=== PATIENT | female | born 1985 | race Caucasian/White ===

== ENCOUNTER 2025-05-21 10:37 | Emergency (ER) | payer OTHER, SELFPAY ==
[2025-05-21 10:47] VITALS: BP 124/86; PULSE 84; RESP 16; TEMP 37; O2SAT 97; BMI 29.3
[2025-05-21 11:14] LABS: Hematocrit 40.3 % (37.0-47.0); Hemoglobin 13.7 g/dl (12.0-16.0); Imm Gran Abs Auto 0.03 X10*3/uL (0.00-0.03); Imm Gran Pct Auto 0.3 % (0.0-0.4); Lymphocytes Absolute Auto 2.5 X10*3/uL (1.2-4.9); MANUAL DIFF FLAG NO; Mean Corpuscular HGB Conc 34.0 g/dl (31.0-35.0); Mean Corpuscular Hemoglobin 30.0 pg (27.0-33.0); Mean Corpuscular Volume 88.4 fL (80.0-98.0); NRBC Abs Auto 0.000 X10*3/uL (0.0-0.012); NRBC Pct Auto 0.0 /100WBC (0.0-0.2); Platelet Count 230 X10*3/uL (160-400); Red Blood Count 4.56 X10*6/uL (4.20-5.50); White Blood Count 9.3 X10*3/uL (4.8-10.8)
--- NOTE | 2025-05-21 11:21 | ED.GENADULT ---
HPI - General Adult General Chief complaint: Allergic Reaction Stated complaint: Allergic Reaction Time Seen by Provider: 05/21/25 12:05 Related Data Previous Rx's ?Medication ?Instructions ?Recorded fluconazole 150 mg tablet 150 mg PO QWEEK #2 tabs 05/21/25 Allergies Allergy/AdvReac Type Severity Reaction Status Date / Time No Known Allergies Allergy Verified 05/21/25 10:51 [facility] Social History Social History Unable to assess alcohol history related to: Unknown Use of substances other than those prescribed or required for medical reasons: Unknown Advance Directives: Yes Advance Directives Information Provided: Yes Advance Directives on File: No Do you have a plan to hurt others: No Plan Patient : No Physical Exam ED Vital Signs: Vital Signs - 24 hr 05/21/25 10:47 05/21/25 12:10 05/21/25 13:19 Temperature 98.6 F 98.6 F Pulse Rate 84 77 78 Respiratory Rate 16 16 17 Blood Pressure 124/86 132/85 129/82 Pulse Oximetry 97 98 98 Oxygen Delivery Method Room Air Room Air Room Air BMI result Body Mass Index 29.3 Course Course Course Narrative: This is an RME performed by Pascual Ellington CNP: Additional HPI, ROS, PE not included below will be deferred to primary provider. patient is a 39-year-old female who presents emergency department for evaluation. She reports for the past week she has had which she believed to be a fungal in nature, has been using OTC ointment without much improvement has only worsened. It is painful to walk on. Has foul-smelling drainage to it. She also states that yesterday she had an erythematous rash to her face, unclear etiology, denies known allergens, new foods or medications. She took an allergy pill. She awoke today and is still persistent. it is pruritic. Denies shortness of breath or difficulty breathing. plan: Serum labs were obtained prior to my evaluation from nursing triage, pending at this time Reevaluation(s) Reevaluation #1: See additional note dated 08/21/2025 from Pascual SANABRIA Medical Decision Making Lab Data 05/21/25 11:08 05/21/25 11:08 Labs: Lab Results 07/01/25 Range/Units 11:08 WBC 9.3 (4.8-10.8) X10*3/uL RBC 4.56 (4.20-5.50) X10*6/uL Hgb 13.7 (12.0-16.0) g/dl Hct 40.3 (37.0-47.0) % MCV 88.4 (80.0-98.0) fL MCH 30.0 (27.0-33.0) pg MCHC 34.0 (31.0-35.0) g/dl RDW 13.0 (11.0-16.0) % Plt Count 230 (160-400) X10*3/uL MPV 9.5 (9.4-12.3) fL Immature Gran % (Auto) 0.3 (0.0-0.4) % Neut % (Auto) 60.5 (45-73) % Lymph % (Auto) 27.1 (20-40) % [place] % (Auto) 5.8 (2-11) % Eos % (Auto) 5.0 H (0-4) % Baso % (Auto) 1.3 (0-2) % Lymph # (Auto) 2.5 (1.2-4.9) X10*3/uL [place] # (Auto) 0.5 (0.1-1.2) X10*3/uL Eos # (Auto) 0.5 H (0.0-0.4) X10*3/uL Baso # (Auto) 0.1 (0.0-0.2) X10*3/uL Abs Immat Gran (auto) 0.03 (0.00-0.03) X10*3/uL Absolute Neuts (auto) 5.6 (2.0-8.3) x10*3/uL Absolute Nucleated RBC 0.000 (0.0-0.012) X10*3/uL Nucleated RBC % (auto) 0.0 (0.0-0.2) /100WBC ESR 3 (0-20) MM/HR Sodium 138 (135-145) mmol/L Potassium 4.2 (3.3-5.1) mmol/L Chloride 111 H (96-108) mmol/L Carbon Dioxide 23 (22-29) mmol/L Anion Gap 8 L (12-20) BUN 9 (9-16) mg/dL Creatinine 0.71 (0.5-1.4) mg/dL Estim Creat Clear Calc 89.7 Estimated GFR > 60 Random Glucose 95 (60-115) mg/dL Calcium 8.8 (8.4-10.2) mg/dL Total Bilirubin 0.8 (0.0-1.0) mg/dL AST 23 (5-31) U/L ALT 15 (0-31) U/L Alkaline Phosphatase 66 (39-117) U/L C-Reactive Protein 0.20 (< or = 0.50) mg/dL Total Protein 6.9 (6.5-8.0) g/dL Albumin 4.3 (3.5-5.0) g/dL Discharge Plan Discharge Clinical Impression: Contact dermatitis, Tinea pedis Patient Disposition: Home, Self-Care Instructions: Contact Dermatitis (DC) Additional Instructions: you were seen in the emergency department today due to rash over your face and right foot. Your lab work was normal. Your physical exam showed a scaling red rash of the right foot consistent with a fungal infection called tinea pedis. You should continue to use your jpuj-izh-ziriwbr fungal foot spray daily for the next 4 weeks. You will also be prescribed an anti-fungal medication called Fluconazole which you will take 150 mg weekly for the next 2 weeks, with follow up with podiatry. You stated you do not have a PCP, I encourage you to get established with 1 to ensure improvement and to manage these chronic fungal infections. For the rash on your face, I suspect contact dermatitis. You should use a gentle fragrance free face wash, and gentle fragrance free facial moisturizer. You can also do cold compresses onto the skin and neck to manage the itching. Please follow up with Podiatry, you have to call the office to make an appointment. Please return to the emergency department if you experience chest pain, shortness of breath, itchy lips/mouth / tongue /throat, difficulty breathing, vocal changes, nausea, vomiting, fever over 100.4 or any other new/worsening/concerning symptoms. Prescriptions: New fluconazole 150 mg tablet 150 mg PO QWEEK Qty: 2 0RF Referrals: Abhi Grant DPM [Physician, Podiatry] Interventions: ED Discharge Assessment Last Done: 05/21/25 13:19 Discharge Date/Time: 05/21/25 13:21 Print Language: Vincentian
[2025-05-21 11:29] LABS: Alanine Aminotransferase 15 U/L (0-31); Albumin Level 4.3 g/dL (3.5-5.0); Alkaline Phosphatase 66 U/L (39-117); Anion Gap 8 (12-20); Aspartate Amino Transferase 23 U/L (5-31); Blood Urea Nitrogen 9 mg/dL (9-16); Calcium 8.8 mg/dL (8.4-10.2); Carbon Dioxide 23 mmol/L (22-29); Chloride 111 mmol/L (96-108); Creatinine Clr Calc Pharmacy 89.7; Estimated Glomerular Filt Rate > 60; Potassium 4.2 mmol/L (3.3-5.1); Sodium 138 mmol/L (135-145); Total Protein 6.9 g/dL (6.5-8.0)
--- NOTE | 2025-05-21 12:07 | ED_ITS ---
HPI - General Adult General Chief complaint: Allergic Reaction Stated complaint: Allergic Reaction Time Seen by Provider: 05/21/25 12:05 Source: patient Mode of arrival: ambulatory Limitations: no limitations History of Present Illness ED Provider: Tianna Montes PA-C HPI narrative: 39-year-old female without significant medical history presents to the ED due to 4 days of intense itching and skin peeling of her right foot. Patient states she gets athlete's foot frequently throughout the year. Noticed itching and redness of her right foot 05/16 and began using qzgj-ujg-wkvuagq clotrimazole cream and spray for management. Patient says the itching is intense and has been rubbing the foot vigorously with a towel causing further irritation. Additionally she has been dealing with a mild rash on her face that is itchy when she touches her face, she denies any new products, detergent, makeup, has been taking Zyrtec daily. Patient states she has been outside recently with daughter taking her to the park. Patient denies chest pain, shortness of breath, nausea, vomiting, chills, diarrhea, black/ tarry stool. Onset (ago): day(s) (4) Location: face and lower extremity ( right foot) Radiation: non-radiation Severity: moderate Related Data Previous Rx's ?Medication ?Instructions ?Recorded fluconazole 150 mg tablet 150 mg PO QWEEK #2 tabs 12/15 Allergies Allergy/AdvReac Type Severity Reaction Status Date / Time No Known Allergies Allergy Verified 05/21/25 10:51 Review of Systems 2 Review of Systems: CONST: Negative for fever, body aches and chills. HENT: Negative for neck pain/stiffness, headache, congestion, sore throat, swelling. EYES: Negative for discharge/pain or vision changes. RESP: Negative for cough/hemoptysis and shortness of breath. CV: Negative chest pain, difficulty breathing, palpitations. ABD: Negative pain, nausea, vomiting. : Negative increase frequency, dysuria, blood in urine or stool. MUSC: Negative for muscle aches, edema. SKIN: Negative rash, lesions/sores. POS scaling, puritic rash on R foot, papular rash on face, neck NEURO: Negative headache, dizziness, weakness. [facility] Past Medical History Attestation statement: The following information was validated with the patient. Social History Social History Unable to assess alcohol history related to: Unknown Use of substances other than those prescribed or required for medical reasons: Unknown Advance Directives: Yes Advance Directives Information Provided: Yes Advance Directives on File: No Do you have a plan to hurt others: No Plan Patient : No Physical Exam ED Vital Signs: Vital Signs - 24 hr 05/21/25 10:47 05/21/25 12:10 Temperature 98.6 F Pulse Rate 84 77 Respiratory Rate 16 16 Blood Pressure 124/86 132/85 Pulse Oximetry 97 98 Oxygen Delivery Method Room Air Room Air BMI result Body Mass Index 29.3 GENERAL APPEARANCE: ?AxOx4, generally well-appearing, no acute distress. HEENT: ?NC, AT. MMM. EOMI, clear conjunctiva, oropharynx clear. NECK: ?Supple without lymphadenopathy.? No stiffness or restricted ROM. HEART:? Normal rate and regular rhythm, normal S1/S1, no m/r/g LUNGS:? CTAB, moving air well. No crackles or wheezes are heard. ABDOMEN: ?Soft, nontender, nondistended with good bowel sounds heard. BACK: No CVAT, no obvious deformity. EXTREMITIES: ?Without cyanosis, clubbing or edema. R foot with erythema over 2- 5th digits with skin sloughing, negative Nikolsky sign see attached photos NEUROLOGICAL: ?Grossly nonfocal. Alert and oriented, moving all 4 extremities. Observed to ambulate with normal gait. Skin: ?Warm and dry without any rash. mild erythematous papules of bilateral cheeks and neck Medical Decision Making Medical Decision Making MDM Narrative: 39-year-old female without significant medical history presents to the ED due to 4 days of intense itching and skin peeling of her right foot. Patient states she gets athlete's foot frequently throughout the year. Noticed itching and redness of her right foot 05/16 and began using rmtj-vyk-qhrcrcs clotrimazole cream and spray for management. Patient says the itching is intense and has been rubbing the foot vigorously with a towel causing further irritation. Additionally she has been dealing with a mild rash on her face that is itchy when she touches her face, she denies any new products, detergent, makeup, has been taking Zyrtec daily. Patient states she has been outside recently with daughter taking her to the park. no recent antibiotic use, patient not on any daily medications, no increased use of aspirin. VSS, no acute distress, nontoxic appearing. On physical exam right foot with erythema, sloughing of the intertriginous areas (see photos attached to physical exam portion of this note), Nikolsky sign negative- less likley SJS/scalded skin syndrome. labs unremarkable. I believe this is tinea pedis, patient states that she gets this condition several times of the year, uses daily foot powders. We will counseled patient on continued use of OTC clotrimazole spray, will prescribe the patient 150 mg fluconazole once weekly for 2 weeks for resistant fungal infection with follow up with podiatry. Patient does not have PCP, we will urge patient to get established. Contact dermatitis on face is mild, will certified alcohol counselor patient to use mild gentle soap, daily Zyrtec and cold compresses to manage papules. Differential Diagnosis Differential Diagnoses: The differential diagnosis associated with the presentation includes SJS Scalded skin syndrome Tinea pedis Cellulitis contact dermatitis Admission/Observation Consideration of admission/observation: Escalation of care including admission/observation considered Lab Data MDM Lab Attestation statement: I reviewed the patient's lab results. 05/21/25 11:08 05/21/25 11:08 Labs: Lab Results 05/21/25 Range/Units 11:08 WBC 9.3 (4.8-10.8) X10*3/uL RBC 4.56 (4.20-5.50) X10*6/uL Hgb 13.7 (12.0-16.0) g/dl Hct 40.3 (37.0-47.0) % MCV 88.4 (80.0-98.0) fL MCH 30.0 (27.0-33.0) pg MCHC 34.0 (31.0-35.0) g/dl RDW 13.0 (11.0-16.0) % Plt Count 230 (160-400) X10*3/uL MPV 9.5 (9.4-12.3) fL Immature Gran % (Auto) 0.3 (0.0-0.4) % Neut % (Auto) 60.5 (45-73) % Lymph % (Auto) 27.1 (20-40) % [place] % (Auto) 5.8 (2-11) % Eos % (Auto) 5.0 H (0-4) % Baso % (Auto) 1.3 (0-2) % Lymph # (Auto) 2.5 (1.2-4.9) X10*3/uL [place] # (Auto) 0.5 (0.1-1.2) X10*3/uL Eos # (Auto) 0.5 H (0.0-0.4) X10*3/uL Baso # (Auto) 0.1 (0.0-0.2) X10*3/uL Abs Immat Gran (auto) 0.03 (0.00-0.03) X10*3/uL Absolute Neuts (auto) 5.6 (2.0-8.3) x10*3/uL Absolute Nucleated RBC 0.000 (0.0-0.012) X10*3/uL Nucleated RBC % (auto) 0.0 (0.0-0.2) /100WBC ESR 3 (0-20) MM/HR Sodium 138 (135-145) mmol/L Potassium 4.2 (3.3-5.1) mmol/L Chloride 111 H (96-108) mmol/L Carbon Dioxide 23 (22-29) mmol/L Anion Gap 8 L (12-20) BUN 9 (9-16) mg/dL Creatinine 0.71 (0.5-1.4) mg/dL Estim Creat Clear Calc 89.7 Estimated GFR > 60 Random Glucose 95 (60-115) mg/dL Calcium 8.8 (8.4-10.2) mg/dL Total Bilirubin 0.8 (0.0-1.0) mg/dL AST 23 (5-31) U/L ALT 15 (0-31) U/L Alkaline Phosphatase 66 (39-117) U/L C-Reactive Protein 0.20 (< or = 0.50) mg/dL Total Protein 6.9 (6.5-8.0) g/dL Albumin 4.3 (3.5-5.0) g/dL External Record Review External record reviewed: Inpatient record, Office record and Outpatient record Discharge Plan Discharge Clinical Impression: Contact dermatitis, Tinea pedis Patient Disposition: Home, Self-Care Instructions: Contact Dermatitis (DC) Additional Instructions: you were seen in the emergency department today due to rash over your face and right foot. Your lab work was normal. Your physical exam showed a scaling red rash of the right foot consistent with a fungal infection called tinea pedis. You should continue to use your qawe-dxx-irgedzo fungal foot spray daily for the next 4 weeks. You will also be prescribed an anti-fungal medication called Fluconazole which you will take 150 mg weekly for the next 2 weeks, with follow up with podiatry. You stated you do not have a PCP, I encourage you to get established with 1 to ensure improvement and to manage these chronic fungal infections. For the rash on your face, I suspect contact dermatitis. You should use a gentle fragrance free face wash, and gentle fragrance free facial moisturizer. You can also do cold compresses onto the skin and neck to manage the itching. Please follow up with Podiatry, you have to call the office to make an appointment. Please return to the emergency department if you experience chest pain, shortness of breath, itchy lips/mouth / tongue /throat, difficulty breathing, vocal changes, nausea, vomiting, fever over 100.4 or any other new/worsening/concerning symptoms. Prescriptions: New fluconazole 150 mg tablet 150 mg PO QWEEK Qty: 2 0RF Referrals: Abhi Grant DPM [Physician, Podiatry] Print Language: Zambian
[2025-05-21 12:10] VITALS: BP 132/85; PULSE 77; RESP 16; O2SAT 98
[2025-05-21 13:19] VITALS: BP 129/82; PULSE 78; RESP 17; TEMP 37; O2SAT 98
--- OUTSIDE RECORDS SUMMARY | 2025-05-21 13:24 | XMS_ITS | Clinical Summary ---
Author Organization [facility] it Address [address] [place] [address] Care Team Providers Care Phone Manager Name Role Phone Josselyn Parham DO Primary Care Provider [phone] Surgical History Surgery Date Site/Laterality Comments SECTION 09/30 PROCEDURE: HISTORICAL DELIVERY; COMMENT: LTC/S failure to progress 6 cm OP BACK SURGERY 05/1992 PROCEDURE: HISTORICAL BACK SURGERY; COMMENT: Cervical diskectomies/fusion, shunt placed. OTHER SURGICAL HISTORY PROCEDURE: HISTORICAL D&C; COMMENT: x 2 OTHER SURGICAL HISTORY PROCEDURE: HISTORY OTHER; COMMENT: NURSERY HELPER shunt 1991 Medical History Medical History Date Comments Asthma, exercise induced DX:Asth ma, exercise induced BRCA negative DX:BRCA negative Esophageal reflux DX:Esophageal reflux Constipation DX:Constipation Abdominal bloating DX:Abdominal bloating Family History Medical History Relation Name Comments Other: breast cancer Aunt 1 paterna l aunt Breast cancer Aunt 2 paternal aunt Other: breast cancer Aunt 3 paterna l aunt Other: heart murmur Brother congenit al No Known Problems Daughter 1 No Known Problems Daughter 2 Heart attack Father Other: Lewey Body Dementia Father Other: seasonal allergies Father Other: skin cancer Father ? primary Diabetes Maternal Grandfather Hypertension Maternal Grandmother Other: breast cancer Mother No Known Problems Paternal Grandfather Breast cancer Paternal Grandmother bilate ral No Known Problems Sister 1 No Known Problems Sister 2 Cervical cancer Neg Hx Colon cancer Neg Hx Ovarian cancer Neg Hx Pancreatic cancer Neg Hx Prostate cancer Neg Hx Uterine cancer Neg Hx Relation Name Status Comments Aunt 1 Aunt 2 Aunt 3 Brother Alive has epilepsy Daughter 1 Alive Daughter 2 Alive Father Alive Maternal Grandfather Maternal Grandmother Alive Mother Alive Paternal Grandfather Paternal Grandmother Sister 1 Alive Sister 2 Alive Social History Tobacco Use Types Packs/Day Years Used Date Smoking Tobacco: Never Smokeless Tobacco: Never Alcohol Use Standard Drinks/Week Comments No 0 (1 standard drink = 0.6 oz pur e alcohol) Comments Unknown Sex and Gender Information Value Date Recorded Sex Assigned at Not on file Legal Sex Female 6:52 PM EST Gender Identity Not on file Sexual Orientation Not on file Obstetrics History Last Filed Vital Signs Vital Sign Reading Time Taken Comments Blood Pressure 102/70 04/28/2023 11:22 AM EDT Pulse 75 04/28/2023 11:22 AM EDT Temperature - - Respiratory Rate - - Oxygen Saturation - - Inhaled Oxygen Concentration - - Weight 74.4 kg (164 lb) 04/28/2023 11:22 AM EDT Height 152.4 cm (5') 04/28/2023 11:22 AM EDT Body Mass Index 32.03 04/28/2023 11:22 AM EDT Plan of Treatment Health Maintenance Due Date Last Done Comments Breast Cancer Screening 1983 Hepatitis B Vaccines (1 of 3 - 19+ 3-dose series) 2002 Pneumococcal Vaccine: Pediatrics (0 to 5 Years) and At-Risk Patients (6 to 64 Years) (1 of 2 - PCV) 2002 Depression Screening 10/23/2022 HIV Screening 10/23/2022 Hepatitis C Screening 10/23/2022 Social Influencers of Health Screening 10/23/2022 Cervical Cancer Screening: P ap Smear 09/26/2023 09/26/2020 COVID-19 Vaccine ( - 2023-2 5 season) 2024 Influenza Vaccine (Season Ended) 2025 09/26/2020, 09/17/2010 DTaP,Tdap,and Td Vaccines (3 - Td or Tdap) 01/09/2031 01/09/2021, 05/05/2016 HIB Vaccines Aged Out No longer eligi ble based on patient's age to complete this topic HPV Vaccines Aged Out No longer eligi ble based on patient's age to complete this topic Hepatitis A Vaccines Aged Out No long er eligible based on patient's age to complete this topic IPV Vaccines Aged Out No longer eligi ble based on patient's age to complete this topic MMR Vaccines Aged Out No longer eligi ble based on patient's age to complete this topic Meningococcal ACWY Vaccine Aged Out N o longer eligible based on patient's age to complete this topic Meningococcal B Vaccine Aged Out No l onger eligible based on patient's age to complete this topic RSV Immunization Patients Under 20 months Aged Out No longer eligible b ased on patient's age to complete this topic Varicella Vaccines Aged Out No longer eligible based on patient's age to complete this topic Procedures Procedure Name Priority Date/Time Associated Diagnosis Comments PAP SMEAR Routine 09/26/2020 from Last 3 Months or Most Recently Relevant to Health Maintenance Results * Pap smear (09/26/2020) 09/26/2020 Narrative HISTORICAL TESTING LAB RESULTING AGENCY - 10/06/2020 12:51 PM EST [id number] THINPREP PAP AND CELL BLOCK: NEGATIVE FOR SQUAMOUS INTRAEPITHELIAL LESION AND MALIGNANCY . RADHA SINGH(ASCP) (CASE SCREENED 10 01 2020) BABAR WALKER M.D. , PATHOLOGIST (CASE ELECTRONICALLY SIGNED 10 02 2020) RESULT OF APTIMA HIGH RISK HPV ASSAY: HIGH RISK HPV: NEGATIVE (SEROTYPES 16,18,31,33,35,39,45,51,52,56,58,59,66,68) COMPLETED ON 2020-09-30 ADEQUACY: SATISFACTORY . SOURCE: THINPREP PAP HPV ANY DX: REFLEX 16 AND 18, VAGINAL, IMAGED CLINICAL INFORMATION: HPV ANY DIAGNOSIS. , PAP HX NEG, NO LMP RECORDED [Z12.4] CB 09/29/20 Laurel Mejia DO LAB CYTOLOGY ORDERABLES Final Result HISTORICAL TESTING LAB RESULTING AGENCY from Last 3 Months or Most Recently Relevant to Health Maintenance Care Teams Phone Manager Relationship Specialty Start Date End Date Josselyn Parham DO [address] [facility] [place] [address] PCP - General 02/17/23
== END 2025-05-21 13:21 | disposition home or self-care (01) ==
PROVIDERS: Emergency Provider Emergency Medicine Emergency Medical Services
DX: L25.9 Unspecified contact dermatitis, unspecified cause (principal); B35.3 Tinea pedis
CPT/HCPCS: 36415; 80053; 85025; 85652; 86140; 99283; 99284